=== PATIENT | male | born 1995 | race Hispanic/Latino ===

== ENCOUNTER 2020-06-24 09:15 | Emergency (ER) | payer OTHER ==
[2020-06-24 09:55] LABS: Absolute Lymphocytes (CBC) 1.6 K/uL (0.7-4.9); Basophils % 0.2 % (0-1.3); Lymphocytes % 8.8 % (15.3-44.8); MPV 8.3 fL (7.6-11.3); RBC Red Blood Cell Count 5.01 M/uL (4.33-5.43)
[2020-06-24] MEDS ORDERED: IBUPROFEN 400 MG TAB ONE (10:01)
[2020-06-24] MEDS ORDERED: dexAMETHasone 10 MG/ML VIAL ONE (10:01)
[2020-06-24 10:12] LABS: BUN Blood Urea Nitrogen 11 mg/dL (7-18); Bicarbonate 27 mmol/L (21-32); Glucose Level 101 mg/dL (74-106); Potassium 3.5 mmol/L (3.5-5.1); Sodium Level 139 mmol/L (136-145)
--- NOTE | 2020-06-24 10:19 | RAD REPORT ---
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 FINDINGS: 3.4 x 3.4 cm right-sided peritonsillar abscess is present. Small adjacent tonsillith is se en. There is moderate mass effect on the pharynx. No prevertebral abscess seen. Several enlarged jugular chain lymph nodes are present bilaterally, largest on the right measuring 14 mm. The salivary glands are symmetric in size. Normal sized thyroid gland. IMPRESSION: 3.4 cm right peritonsillar abscess.
[2020-06-24] MEDS ORDERED: CLINDAMYCIN 900MG/D5W 900 MG/50 ML IVPB IV ONE (10:27)
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
--- NOTE | 2020-06-24 10:48 | EDPHYS ---
Physician Documentation [facility] Name: Zaki Ibrahim Age: 24 yrs Sex: Male : 1995 Arrival Date: 06/24/2020 Time: 09:24 Bed 20 Private MD: ED Physician Rajesh Gaytan HPI: 06/24 10:03 This 24 yrs old Male presents to ER via Law Enforcement with complaints of jmm Sore Throat. 10:03 The patient presents with sore throat. Onset: The symptoms/episode began/occurred jmm gradually, 2 day(s) ago. Modifying factors: The symptoms are alleviated by nothing, the symptoms are aggravated by nothing. Associated signs and symptoms: Pertinent positives: chills, fever. The patient has experienced similar episodes in the past. Patient states this is his 3rd throat infection in a year. Historical: - Allergies: 09:33 No Known Allergies; bw - Home Meds: 09:34 None [Active]; bw - PMHx: 09:34 None; bw - PSHx: 09:34 lip surgery; bw - Immunization history:: Adult Immunizations up to date. - Social history:: Smoking status: Patient/guardian denies using tobacco. ROS: 10:03 Constitutional: Negative for fever, chills, and weight loss. jmm 10:03 Cardiovascular: Negative for chest pain, palpitations, and edema, Respiratory: Negative for shortness of breath, cough, wheezing, and pleuritic chest pain. 10:03 ENT: Positive for sore throat. 10:03 All other systems are negative. Exam: 10:03 Constitutional: This is a well developed, well nourished patient who is awake, alert, jmm and in no acute distress. Head/Face: atraumatic. Eyes: EOMI, no conjunctival erythema appreciated 10:03 Cardiovascular: Regular rate and rhythm. No edema appreciated Respiratory: Normal respirations, no respiratory distress appreciated Abdomen/GI: Non distended, soft Back: Normal ROM Skin: General appearance color normal MS/ Extremity: Moves all extremities, no obvious deformities appreciated, no edema noted to the lower extremities Neuro: Awake and alert, normal gait Psych: Behavior is normal, Mood is normal, Patient is cooperative and pleasant 10:03 ENT: Posterior pharynx: Airway: normal, swelling, that is moderate, erythema, that is moderate, peritonsillar mass, is noted on the right. Vital Signs: 09:26 BP 128 / 93; Pulse 88; Resp 20; Temp 101.3; Pulse Ox 99% ; Weight 84.82 kg; Height 5 bw ft. 10 in. (177.80 cm); Pain 7/10; 11:02 BP 126 / 75; Pulse 75; Resp 18; Temp 98.8; Pulse Ox 99% ; bw 13:35 BP 122 / 70; Pulse 71; Resp 18; Pulse Ox 99% ; bw 09:26 Body Mass Index 26.83 (84.82 kg, 177.80 cm) bw MDM: 09:33 Patient medically screened. [facility] 10:46 Data reviewed: vital signs, nurses notes. Counseling: I had a detailed discussion with [facility] the patient and/or guardian regarding: the historical points, exam findings, and any diagnostic results supporting the discharge/admit diagnosis, lab results, radiology results, the need to transfer to another facility. 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 Will transfer to [facility] for I and D. . 06/24 09:33 Order name: CBC with Diff; Complete Time: 09:59 [facility] 06/24 09:33 Order name: BMP; Complete Time: 10:15 [facility] 06/24 09:34 Order name: CT Soft Tissue Neck W/contr; Complete Time: 10:28 [facility] 06/24 09:33 Order name: Saline Lock; Complete Time: 09:41 [facility] Administered Medications: 10:02 Drug: Decadron - Dexamethasone 10 mg Route: IVP; Site: right forearm; bw 11:07 Follow up: Response: No adverse reaction bw 10:02 Drug: Motrin 800 mg Route: PO; bw 11:07 Follow up: Response: No adverse reaction bw 10:18 Drug: Clindamycin 900 mg Route: IVPB; Infused Over: 30 mins; Site: right forearm; bw 11:06 Follow up: Response: No adverse reaction; IV Status: Completed infusion bw Disposition: 15:50 Co-signature as Attending Physician, Rajesh Gaytan MD I agree with the assessment and 4 plan of care. Disposition: 06/24/20 10:48 Transfer ordered to [facility]. Diagnosis is Peritoneal abscess. - Reason for transfer: Higher level of care. - Accepting physician is [facility] Physician. - Condition is Stable. - Problem is new. - Symptoms are unchanged. Signatures: Dispatcher [employer] EDMS Chago Gonsales PA PA jmm Wadley, Terrence, MD MD tw4 Addie Dietz RN RN bw Corrections: (The following items were deleted from the chart) 14:41 10:48 06/24/2020 10:48 Transfer ordered to [facility]. Diagnosis is Peritoneal bw abscess. Reason for transfer: Higher level of care. Accepting physician is [facility] Physician. Condition is Stable. Problem is new. Symptoms are unchanged. lidia
[2020-06-24 14:53] VITALS: O2SAT 99
[2020-06-24 14:54] VITALS: TEMP 98.8
[2020-06-24 14:55] VITALS: BP 122/70
== END 2020-06-24 14:41 | disposition short-term general hospital (02) ==
LOC: ER 09:15
DX: J36 Peritonsillar abscess (principal)
CPT/HCPCS: 85025; 80048; 36415; 70491; Q9967; 96365; 96375; 99285; J1100

== ENCOUNTER 2022-09-21 03:11 | Emergency (ER) | payer OTHER ==
[2022-09-21] MEDS ORDERED: LIDOCAINE 1% W/EPI 1:100,000 50 ML MDV ONE (03:32)
[2022-09-21] MEDS ORDERED: TETANUS & DIPHTHERIA TOX,ADULT 0.5 ML VIAL ONE (03:32)
[2022-09-21] MEDS ORDERED: LIDOCAINE 2% MPF 5 ML VIAL ONE (03:32)
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
[2022-09-21 07:18] VITALS: TEMP 98.9
[2022-09-21 07:20] VITALS: BP 118/64; O2SAT 95
--- NOTE | 2022-09-22 19:30 | RAD REPORT ---
EXAM DESCRIPTION: CT - Head Brain Wo Cont - 09/21/2022 6:14 am COMPARISON: None. CLINICAL HISTORY: [facility] MA[facility] CONFUSED TECHNIQUE: Axial images were obtained from skull base to vertex without intravenous contrast. Elisha ges viewed on bone and brain windows. Multiplanar reformats were performed. Automated exposure cont rol was utilized on this examination as a dose lowering technique. FINDINGS: Brain parenchyma, ventricles, dura, meninges, and extra-axial spaces: Ventricles and sulci are normal . No abnormal attenuation of brain parenchyma is present. No acute intracranial hemorrhage or ab normal extra-axial fluid collections are present. Vascular structures: No hyperdense arteries or veins. Calvarium, mastoid air cells: The calvarium is normal. The mastoid air cells are clear. EXAM DESCRIPTION: CT Maxillofacial COMPARISON: None. CLINICAL HISTORY: [facility] MAIN CONFUSED TECHNIQUE: High resolution axial CT images are obtained through the maxillofacial bones without intr avenous contrast followed by multiplanar reformats. Automated exposure control was utilized on this e xamination as a dose lowering technique. FINDINGS: Maxillofacial bones and mandible: Mildly displaced bilateral nasal bone fractures. Orbital structures: Unremarkable. Paranasal sinuses: Clear. Soft tissues: Left facial contusion. Laceration of the left lip. IMPRESSION: HEAD IMPRESSION: No acute intracranial abnormality. MAXILLOFACIAL IMPRESSION: Mildly displaced bilateral nasal bone fractures. Left facial contusion. Laceration of the left lip. Electronically signed by: Sesar Guardado MD 09/21/2022 5:33 AM CDT Due to temporary technical issues with the PACS/Fluency reporting system, reports are being signed by the in house radiologists without review as a courtesy to insure prompt reporting. The interpreting radiologist is fully responsible for the content of the report.
--- NOTE | 2022-09-22 19:31 | RAD REPORT ---
EXAM DESCRIPTION: CT - Facial Bones W/ Mpr - 09/21/2022 6:15 am COMPARISON: None. CLINICAL HISTORY: [facility] MAIN CONFUSED TECHNIQUE: Axial images were obtained from skull base to vertex without intravenous contrast. Imag es viewed on bone and brain windows. Multiplanar reformats were performed. Automated exposure contr ol was utilized on this examination as a dose lowering technique. FINDINGS: Brain parenchyma, ventricles, dura, meninges, and extra-axial spaces: Ventricles and sulci are normal. No abnormal attenuation of brain parenchyma is present. No acute intracranial hemor rhage or abnormal extra-axial fluid collections are present. Vascular structures: No hyperdense arteries or veins. Calvarium, mastoid air cells: The calvarium is normal. The mastoid air cells are clear. EXAM DESCRIPTION: CT Maxillofacial COMPARISON: None. CLINICAL HISTORY: [facility] MAIN CONFUSED TECHNIQUE: High resolution axial CT images are obtained through the maxillofacial bones without intr avenous contrast followed by multiplanar reformats. Automated exposure control was utilized on this e xamination as a dose lowering technique. FINDINGS: Maxillofacial bones and mandible: Mildly displaced bilateral nasal bone fractures. Orbital structures: Unremarkable. Paranasal sinuses: Clear. Soft tissues: Left facial contusion. Laceration of the left lip. IMPRESSION: HEAD IMPRESSION: No acute intracranial abnormality. MAXILLOFACIAL IMPRESSION: Mildly displaced bilateral nasal bone fractures. Left facial contusion. Laceration of the left lip. Electronically signed by: Sesar Guardado MD 09/21/2022 5:33 AM CDT Due to temporary technical issues with the PACS/Fluency reporting system, reports are being signed by the in house radiologists without review as a courtesy to insure prompt reporting. The interpreting radiologist is fully responsible for the content of the report.
== END 2022-09-21 07:12 ==
LOC: ER 03:11
PROC: 0HQ1XZZ Repair Face Skin, External Approach (ICD-10-PCS; principal; 2022-09-21)
DX: S02.2XXA Fracture of nasal bones, initial encounter for closed fracture (principal); S01.511A Laceration without foreign body of lip, initial encounter; S01.512A Laceration without foreign body of oral cavity, initial encounter; Z23 Encounter for immunization
CPT/HCPCS: 70450; 70486; 76377; 90471; 90714; 99284; 12013; J2001